=== PATIENT | female | born 2000 | race Caucasian/White ===

== ENCOUNTER 2023-08-26 16:34 | Emergency (ER) | payer OTHER, SELFPAY ==
--- NOTE | ~2023-08-26 | XR_ITS ---
EXAMINATION: XR ankle RT min 3V INDICATION: Right ankle pain TECHNIQUE: Four views of the right ankle are obtained on five radiographs. COMPARISON: None available FINDINGS: There is lateral soft tissue swelling of ankle. Bone alignment is normal. There is no fract ure. The ankle mortise is intact. IMPRESSION: 1. Soft tissue swelling without acute osseous abnormality. Reviewed, dictated and finalized at location F.
--- NOTE | 2023-08-26 16:38 | ED.LOWEXIN ---
HPI - Extremity Injury (Lower) General Chief Complaint: Extremity Injury, Lower Stated Complaint: Right Ankle Injury Time Seen by Provider: 08/26/23 16:38 Source: patient Mode of arrival: ambulatory Limitations: no limitations History of Present Illness HPI Narrative: Raquel is a 23-year-old female patient presenting to the clinic today with complaints of right ankle pain/injury. She reports she was leaving the [employer] [place] and twisted her ankle on a curb causing the ankle to invert. Has pain and swelling to the lateral right ankle. Pain with curling her toes-radiates up into her ankle, Related Data Home Medications Medication Instructions Recorded Confirmed No Home Medications 08/26/23 08/26/23 Allergies Allergy/AdvReac Type Severity Reaction Status Date / Time No Known Allergies Allergy Verified 08/26/23 16:50 Review of Systems Review of Systems: Pertinent positives per HPI. Patient denies any fever, chills, rash, headache, visual changes, dizziness, cough, runny nose, sore throat, shortness of breath, chest pain, palpitations, nausea, vomiting, diarrhea, constipation, abdominal pain, or any urinary issues. [facility] Comments At the time of my signature, I reviewed and agree with the nursing past medical, surgical, social, and family history. There is no relevant family history pertinent to the patient complaint. Exam Narrative: General: Well-developed, overweight, in no apparent distress Head: Normocephalic, atraumatic. Cardio: Regular rate and rhythm, s1 and s2 normal, no murmur appreciated. Resp: Clear to auscultation bilaterally, no rhonchi, rales, wheezing or rubs. Musculoskeletal: No deformity, swelling and bruising noted over the lateral right ankle tender to palpation over the lateral malleolus, pain with flexion and extension of the foot over the lateral posterior and medial ankle, weakness noted with flexion and extension of the foot against resistance, peripheral pulse strong, no cyanosis, using crutches for assistance with walking Course Course Emergency Course: Portions of this record may have been created with voice recognition software. Level of Care: Express Care Visit Vital Signs Vital signs: Vital signs reviewed MDM - Extremity Injury (Lower) MDM Narrative Medical decision making narrative: At the time the patient resting on exam table. X-ray of the right ankle was performed and was negative for any sign of fracture or malalignment. I suspect patient has a right ankle sprain. Supportive measures were discussed with the patient she voiced understanding discharge instructions agrees to treatment plan. Differential Diagnosis Differential diagnosis: Likely ankle sprain and strain and ankle fracture Imaging Data Radiologist's impression: ITS Impressions Ankle X-Ray 08/26/23 16:54 IMPRESSION: 1. Soft tissue swelling without acute osseous abnormality. Discharge Plan Discharge Clinical Impression: Right ankle sprain Qualifiers: Encounter type: initial encounter Involved ligament of ankle: calcaneofibular ligament Qualified Code(s): S93.411A - Sprain of calcaneofibular ligament of right ankle, initial encounter Patient Disposition: Home, Self-Care Condition: Stable Instructions: Antibiotic Form, Ankle Sprain (ED), Ankle Stirrup Splint (ED) Additional Instructions: X-rays negative for any sign of fractures or malalignment of the right ankle Rest, ice, elevate, and wear eric wrap as directed Tylenol/motrin for pain as discussed. Use crutches as needed Gradually bear weight Follow up with your PCP if symptoms persist more than 1 week. Prescriptions: No Action No Home Medications Follow-up/Referrals: UNKNOWN,DOCTOR [Non-Staff] - Time of Disposition: 17:04 Quality NIHSS Nursing Documentation ED NIHSS nursing documentation: reviewed/agree
[2023-08-26 16:45] VITALS: BP 103/69; PULSE 121; RESP 18; TEMP 36.3; O2SAT 100
== END 2023-08-26 17:07 | disposition home or self-care (01) ==
PROVIDERS: Emergency Provider Nurse Practitioner Family
DX: S93.401A Sprain of unspecified ligament of right ankle, initial encounter (principal); X50.9XXA Other and unspecified overexertion or strenuous movements or postures, initial encounter
CPT/HCPCS: 73610; 99203; G0463